=== PATIENT | male | born 1975 | race Caucasian/White ===

== ENCOUNTER 2023-09-09 14:19 | Emergency (ER) | payer OTHER ==
[2023-09-09 14:27] VITALS: TEMP 97.4
--- NOTE | 2023-09-09 15:36 | XR ---
EXAMINATION TYPE: XR finger RT DATE OF EXAM: 09/09/2023 COMPARISON: None HISTORY: Crush injury TECHNIQUE: 3 view right fifth digit FINDINGS: There is a comminuted fracture mid diaphysis middle phalanx right fifth digit. This is slig htly displaced. Soft tissue changes are evident. IMPRESSION: 1. Comminuted fracture mid diaphysis middle phalanx right fifth digit
[2023-09-09] MEDS ORDERED: LIDOCAINE 1% INJ 10MG/ML (20 ML MDV) SQ ONE (15:37)
--- NOTE | 2023-09-09 15:40 | ED ---
General Adult HPI - General Chief complaint: Extremity Injury, Upper Stated complaint: Rt hand injury Time Seen by Provider: 09/09/23 14:58 Source: patient, RN notes reviewed Mode of arrival: ambulatory Limitations: no limitations - History of Present Illness Initial comments: 47-year-old male presents emergency Department with chief complaint of right fifth digit crush injury. He states that just prior to arrival he was using a log splitter when a log fell on his finger crushing it between the log and the log splitter. He states that he was wearing gloves but his finger got pinched causing a laceration on the volar aspect of the finger. There is visible deformity to the finger. He is unsure when his last tetanus vaccination was. He reports normal sensation to the finger. - Related Data Previous Rx's Medication Instructions Recorded Acetaminophen-Codeine 300-30mg 1 tab PO Q4H PRN 3 Days #18 tablet 09/09/23 [Tylenol w/codeine #3] Cephalexin [Keflex] 500 mg PO BID #14 cap 09/09/23 Allergies Allergy/AdvReac Type Severity Reaction Status Date / Time flurbiprofen [From Ansaid] Allergy Swelling Verified 09/09/23 14:27 Review of Systems ROS Statement: Those systems with pertinent positive or pertinent negative responses have been documented in the HPI. ROS Other: All systems not noted in ROS Statement are negative. Past Medical History Past Medical History: No Reported History Past Surgical History: No Surgical Hx Reported Past Psychological History: No Psychological Hx Reported General Exam Limitations: no limitations General appearance: alert, in no apparent distress Head exam: Present: atraumatic, normocephalic, normal inspection Eye exam: Present: normal appearance Respiratory exam: Present: normal lung sounds bilaterally. Absent: respiratory distress, wheezes, rales, rhonchi, stridor Cardiovascular Exam: Present: regular rate, normal rhythm, normal heart sounds. Absent: systolic murmur, diastolic murmur, rubs, gallop, clicks Extremities exam: Present: tenderness, normal capillary refill, other (radial pulses 2+, decreased ROM of right hand 5th digit, sensation intact distal to injury.). Absent: full ROM Neurological exam: Present: alert, oriented X3 Psychiatric exam: Present: normal affect, normal mood Skin exam: Present: warm, dry, normal color, other (Laceration of right fifth digit left hand on the volar aspect about 1.5 cm). Absent: intact Course Vital Signs 09/09/23 09/09/23 14:24 17:39 Temperature 97.4 F L Pulse Rate 68 64 Respiratory 16 18 Rate Blood Pressure 115/76 106/74 O2 Sat by Pulse 98 99 Oximetry Procedures - Laceration Laceration #1 Consent Obtained: verbal consent Indication: laceration Site: hand Size (cm): 2 Description: linear Depth: simple, single layer Anesthetic Used: lidocaine 1% Anesthesia Technique: nerve block Pre-repair: wound explored, irrigated extensively (1 L) Type of Sutures: other Size of Sutures: 5-0 Number of Sutures: 4 Technique: simple, interrupted Patient Tolerated Procedure: well, no complications Medical Decision Making - Medical Decision Making Was pt. sent in by a medical professional or institution (VIVEK Wilder, TRANSPORT MANAGER, urgent care, hospital, or senior living...) When possible be specific @ -No Did you speak to anyone other than the patient for history (EMS, parent, family, police, friend...)? What history was obtained from this source @ -No Did you review nursing and triage notes (agree or disagree)? Why? @ -I reviewed and agree with nursing and triage notes Were old charts reviewed (outside hosp., previous admission, EMS record, old EKG, old radiological studies, urgent care reports/EKG's, senior living records)? Report findings @ -No old charts were reviewed Differential Diagnosis (chest pain, altered mental status, abdominal pain women, abdominal pain men, vaginal bleeding, weakness, fever, dyspnea, syncope, headache, dizziness, GI bleed, back pain, seizure, CVA, palpatations, mental health, musculoskeletal)? @ -Differential Musculoskeletal Muscular strain, contusion, ligament sprain, fracture, arthritis, septic arthritis, bursitis, cellulitis, muscle spasm, nerve compression, DVT, arterial occlusion, herpes zoster, electrolyte abnormality, tumor.... This is not meant to be in all inclusive list EKG interpreted by me (3pts min.). @ -None X-rays interpreted by me (1pt min.). @ -X-ray right fifth finger shows comminuted fracture of the diaphysis of middle phalanx CT interpreted by me (1pt min.). @ -None done U/S interpreted by me (1pt. min.). @ -None done What testing was considered but not performed or refused? (CT, X-rays, U/S, labs)? Why? @ -None What meds were considered but not given or refused? Why? @ -None Did you discuss the management of the patient with other professionals (professionals i.e. , PA, TRANSPORT MANAGER, lab, RT, psych nurse, psychotherapist social worker, cell assembly pinner, teacher, forest fire control officer, case resource manager)? Give summary @ -Case was discussed with orthopedics, Dr. Pedro who recommends placing the patient in a loose ulnar gutter splint and following up with Dr. Thompson hand surgery in the office, he also recommends outpatient antibiotic prophylaxis with Keflex 500 mg twice a day Was smoking cessation discussed for >3mins.? @ -No Was critical care preformed (if so, how long)? @ -No Were there social determinants of health that impacted care today? How? (Homelessness, low income, unemployed, alcoholism, drug addiction, transpor tation, low edu. Level, literacy, decrease access to med. care, penitentiary, rehab)? @ -No Was there de-escalation of care discussed even if they declined (Discuss DNR or withdrawal of care, Hospice)? DNR status @ -No What co-morbidities impacted this encounter? (DM, HTN, Smoking, COPD, CAD, Cancer, CVA, ARF, Chemo, Hep., AIDS, mental health diagnosis, sleep apnea, morbid obesity)? @ -None Was patient admitted / discharged? Hospital course, mention meds given and route, prescriptions, significant lab abnormalities, going to OR and other pertinent info. @ -Discharged. Patient presented to emergency department with chief complaint of right fifth finger crush injury. He states that he was working with a log when a log fell on his fifth finger of the right hand. Patient has a 1.5 cm laceration to the volar aspect of his right fifth finger of the hand. Finger wa s digital blocked and laceration was irrigated with 1 L normal saline and loosely approximated. X-ray obtained which shows comminuted fracture of the mid diaphysis of the middle phalanx of the right fifth digit. Patient neurovascularly intact, cap Refill less than 2 seconds. Patient given 2 g of Ancef IV. Case was then discussed with Dr. Pedro with [facility] who recommends the patient be placed in a loose ulnar gutter splint and outpatient follow-up with prophylactic antibiotics Keflex 500 mg twice a day. Patient will follow up with Dr. Thompson in the office on Monday. Strict return precautions discussed. Patient stable at time of discharge. Case discussed with Dr. Rasheed Undiagnosed new problem with uncertain prognosis? @ -No Drug Therapy requiring intensive monitoring for toxicity (Heparin, Nitro, Insulin, Cardizem)? @ -No Were any procedures done? @ -No Diagnosis/symptom? @ -5th finger open fracture Acute, or Chronic, or Acute on Chronic? @ -acute Uncomplicated (without systemic symptoms) or Complicated (systemic symptoms)? @ -uncomplicated Side effects of treatment? @ -No Exacerbation, Progression, or Severe Exacerbation? @ -No Poses a threat to life or bodily function? How? (Chest pain, [place], [place], pneumonia, PE, COPD, DKA, ARF, appy, cholecystitis, CVA, Diverticulitis, Homicidal, Suicidal, threat to staff... and all critical care pts) @ -No Disposition Clinical Impression: Open comminuted fracture of middle phalanx of finger Disposition: HOME SELF-CARE Condition: Stable Instructions (If sedation given, give patient instructions): Care For Your Stitches (ED), Finger Fracture (ED) Additional Instructions: Please follow up with hand surgery. 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 Keep wound clean and dry. Return to the emergency department for new or worsening symptoms. Prescriptions: Cephalexin [Keflex] 500 mg PO BID #14 cap Acetaminophen-Codeine 300-30mg [Tylenol w/codeine #3] 1 tab PO Q4H PRN 3 Days #18 tablet PRN Reason: Pain Is patient prescribed a controlled substance at d/c from ED?: No Referrals: Phyllis Moreno PAC [Primary Care Provider] - 1-2 days Harlan Thompson DO [Doctor of Osteopathic Medicine] - 1-2 days
[2023-09-09] MEDS ORDERED: TETANUS-DIPHTHERIA TOX (PF) 0.5 ML VIAL IM ONE (15:43)
[2023-09-09] MEDS ORDERED: ACET/COD 300 MG/30 MG STARTER PACK 6 TAB BTL PO STA (17:04)
[2023-09-09 19:07] VITALS: BP 106/74; PULSE 64; RESP 18
== END 2023-09-09 17:50 | disposition home or self-care (01) ==
LOC: EC 14:19
DX: S62.656B Nondisplaced fracture of middle phalanx of right little finger, initial encounter for open fracture (principal); Z88.8 Allergy status to other drugs, medicaments and biological substances; Z23 Encounter for immunization; W20.8XXA Other cause of strike by thrown, projected or falling object, initial encounter
CPT/HCPCS: 73140; 90714; 99283; 96365; 12001; 90471; J0690; J2001